=== PATIENT | female | born 1990 | race Caucasian/White ===

== ENCOUNTER 2020-10-30 21:30 | Emergency (ER) | payer OTHER, SELFPAY ==
[2020-10-30 22:02] LABS: Bilirubin Neg (Negative); Blood, Urine 25 (Negative); Clarity Clear (Clear); Glucose, Urine (Dipstick) Normal (Negative); Ketone, Urine Negative (Negative); Leukocyte 25 (Negative); Nitrite Negative (Negative); Protein, Urine (Dipstick) Negative (Neg-Trace); Specific Gravity, Urine 1.015 (1.002-1.036)
[2020-10-30 22:05] LABS: Pregnancy Test - Urine (BHCG) Negative (Negative); Pregu Control Background? CLEAR/WHITE (CLR/WHITE); Pregu Control Bar Appear? YES (CONTROL BAR); Specific Gravity 1.015 (1.002-1.036)
[2020-10-30 22:08] LABS: Bacteria/HPF 1+ HPF (None Seen); RBC/HPF 0-3 HPF (0-3); Squamous Epithelial 0-3 HPF (0-3)
[2020-10-30 23:24] LABS: #Eosinphils 0.3 10x3/uL (0.0-0.5); #Monocytes 0.5 10x3/uL (0.0-1.1); #Neutrophils 5.6 10x3/uL (1.5-8.4); %Basophils 0.5 % (0.0-2.0); %Lymphocytes 25.2 % (18.0-47.0); %Monocytes 5.5 % (0.0-10.0); %Neutrophils 65.3 % (40.0-75.0); Hemoglobin 8.8 g/dL (12.0-15.5); Mean Corpuscular Hemoglobin 20.6 pg (27.0-33.0); Mean Corpuscular Volume 70.8 fl (81.6-98.3); Mean Platelet Volume 10.9 fl (7.4-10.4); Platelet Count 431 10x3/uL (150-450); RBC Distribution Width 17.9 % (11.5-14.5); Red Blood Cell (RBC) Count 4.28 10x6/uL (3.90-5.03); White Blood Cell (WBC) Count 8.5 10x3/uL (3.5-10.5)
[2020-10-30 23:32] LABS: ALT (SGPT) 56 U/L (8-55); AST (SGOT) 66 U/L (5-34); Albumin 4.1 g/dL (3.5-5.0); Alkaline Phosphatase 109 U/L (40-110); Anion Gap 16 mmol/L (10-20); BUN (Urea Nitrogen) 9 mg/dL (7.0-18.7); Bilirubin, Total 0.3 mg/dL (0.2-1.2); Calc. Creatinine Clearance 0 mL/min (70-130); Calcium 9.3 mg/dL (7.8-10.44); Carbon Dioxide 21 mmol/L (22-29); Chloride 103 mmol/L (98-107); Globulin 3.8 g/dL (2.4-3.5); Glucose 208 mg/dL (70-105); Protein, Total 7.9 g/dL (6.0-8.3); Sodium 136 mmol/L (136-145)
== END 2020-10-31 01:48 | disposition left against medical advice (07) ==
LOC: CSHERS 21:30
DX: D50.9 Iron deficiency anemia, unspecified (principal); R07.89 Other chest pain; R73.9 Hyperglycemia, unspecified
CPT/HCPCS: 80053; 81003; 81015; 81025; 84484; 85025; 93005

== ENCOUNTER 2021-07-07 12:56 | Emergency (ER) | payer SELFPAY ==
[2021-07-08 17:38] LABS: SARS-CoV-2 PCR by NAA Not Detected (NotDetected)
== END 2021-07-07 15:08 | disposition home or self-care (01) ==
LOC: CSHERS 12:56
DX: R50.9 Fever, unspecified (principal); Z20.822 Contact with and (suspected) exposure to COVID-19; D64.9 Anemia, unspecified
CPT/HCPCS: 87804; 99283; U0003; U0005

== ENCOUNTER 2021-10-18 21:25 | Emergency (ER) | payer MEDICAID ==
[2021-10-18 22:26] LABS: #Basophils 0.1 10x3/uL (0.0-0.2); #Eosinphils 0.3 10x3/uL (0.0-0.5); #Monocytes 0.5 10x3/uL (0.0-1.1); #Neutrophils 6.8 10x3/uL (1.5-8.4); %Basophils 0.5 % (0.0-2.0); %Eosinophils 3.4 % (0.0-6.0); %Lymphocytes 21.4 % (18.0-47.0); %Monocytes 5.2 % (0.0-10.0); %Neutrophils 68.9 % (40.0-75.0); Hemoglobin 8.3 g/dL (12.0-15.5); Mean Corpuscular HGB CONC 27.7 g/dL (32.0-36.0); Mean Corpuscular Hemoglobin 18.8 pg (27.0-33.0); Mean Platelet Volume 10.9 fl (7.4-10.4); Platelet Count 422 10x3/uL (150-450); RBC Distribution Width 19.2 % (11.5-14.5); Red Blood Cell (RBC) Count 4.41 10x6/uL (3.90-5.03); White Blood Cell (WBC) Count 9.9 10x3/uL (3.5-10.5)
[2021-10-18 22:48] LABS: ALT (SGPT) 78 U/L (8-55); AST (SGOT) 93 U/L (5-34); Alkaline Phosphatase 102 U/L (40-110); Anion Gap 15 mmol/L (10-20); BUN (Urea Nitrogen) 8 mg/dL (7.0-18.7); Bilirubin, Total 0.5 mg/dL (0.2-1.2); Calc. Creatinine Clearance 0 mL/min (70-130); Calcium 9.6 mg/dL (7.8-10.44); Carbon Dioxide 21 mmol/L (22-29); Chloride 103 mmol/L (98-107); Globulin 3.8 g/dL (2.4-3.5); Glucose 225 mg/dL (70-105); Potassium 3.8 mmol/L (3.5-5.1); Protein, Total 7.8 g/dL (6.0-8.3); Sodium 135 mmol/L (136-145)
[2021-10-18 23:17] LABS: Hypochromia MODERATE=16-30 cells (100X) (0-5/hpf); Platelet Morphology Comment Appears Adequate; Tear Drops SLIGHT = 2-5 cells (100X) (0-1/hpf)
== END 2021-10-19 01:02 | disposition home or self-care (01) ==
LOC: CSHERS 21:25
DX: R06.02 Shortness of breath (principal); G25.81 Restless legs syndrome
CPT/HCPCS: 36416; 71045; 80053; 83880; 84484; 85025; 86850; 86900; 86901; 93005

== ENCOUNTER 2022-05-19 07:52 | Emergency (ER) | payer MEDICAID | END 2022-05-19 09:33 | disposition home or self-care (01) | LOC: CSHERS 07:52 | DX: M25.511 Pain in right shoulder (principal); E11.9 Type 2 diabetes mellitus without complications | CPT/HCPCS: 99283 ==

== ENCOUNTER 2023-06-10 17:18 | Emergency (ER) | payer OTHER, SELFPAY ==
[2023-06-10 18:13] LABS: SARS-CoV-2 NAA Rapid Test Not Detected (NotDetected)
== END 2023-06-10 19:19 | disposition home or self-care (01) ==
LOC: CSHERS 17:18
DX: J20.9 Acute bronchitis, unspecified (principal); E11.9 Type 2 diabetes mellitus without complications; Z20.822 Contact with and (suspected) exposure to COVID-19
CPT/HCPCS: 99283

== ENCOUNTER 2023-08-08 13:49 | Emergency (ER) | payer SELFPAY ==
[2023-08-08 15:26] LABS: SARS-CoV-2 NAA Rapid Test Not Detected (NotDetected)
== END 2023-08-08 15:40 | disposition home or self-care (01) ==
LOC: CSHERS 13:49
DX: J06.9 Acute upper respiratory infection, unspecified (principal); E11.9 Type 2 diabetes mellitus without complications
CPT/HCPCS: 99283

== ENCOUNTER 2024-03-28 10:40 | Emergency (ER) | payer SELFPAY ==
[2024-03-28] MEDS ORDERED: Aspirin Chewable 81 MG TAB ONE (12:09)
[2024-03-28] MEDS ORDERED: Ketorolac Tromethamine 30 MG (1 mL) VIAL ONE (12:09)
[2024-03-28 12:36] LABS: #Basophils 0.02 10x3/uL (0.0-0.2); #Eosinphils 0.15 10x3/uL (0.0-0.5); #Monocytes 0.28 10x3/uL (0.0-1.1); #Neutrophils 3.55 10x3/uL (1.5-8.4); %Basophils 0.4 % (0.0-2.0); %Eosinophils 2.7 % (0.0-6.0); %Lymphocytes 28.2 % (18.0-47.0); %Neutrophils 63.3 % (40.0-75.0); Hematocrit 22.8 % (34.9-44.5); Hemoglobin 5.4 g/dL (12.0-15.5); Mean Corpuscular HGB CONC 23.7 g/dL (32.0-36.0); Mean Corpuscular Hemoglobin 14.1 pg (27.0-33.0); Mean Corpuscular Volume 59.5 fL (81.6-98.3); Platelet Count 403 10x3/uL (150-450); RBC Distribution Width 20.9 % (11.5-14.5); Red Blood Cell (RBC) Count 3.83 10x6/uL (3.90-5.03); White Blood Cell (WBC) Count 5.6 10x3/uL (3.5-10.5)
[2024-03-28 12:38] LABS: BHCG - Serum Negative (NEGATIVE); Pregs Control Background? CLEAR/WHITE (CLR/WHITE); Pregs Control Bar Appear? YES (CONTROL BAR)
[2024-03-28 12:44] LABS: ALT (SGPT) 11 U/L (8-55); AST (SGOT) 13 U/L (5-34); Albumin 3.7 g/dL (3.5-5.0); Alkaline Phosphatase 58 U/L (40-110); Anion Gap 12 mmol/L (10-20); BUN (Urea Nitrogen) 9 mg/dL (7.0-18.7); Bilirubin, Total 0.5 mg/dL (0.2-1.2); Calc. Creatinine Clearance 0 mL/min (70-130); Calcium 9.5 mg/dL (7.8-10.44); Carbon Dioxide 24 mmol/L (22-29); Chloride 106 mmol/L (98-107); Estimated GFR 116; Globulin 3.8 g/dL (2.4-3.5); Glucose 130 mg/dL (70-105); Lipase 23 U/L (8-78); Potassium 3.3 mmol/L (3.5-5.1); Protein, Total 7.5 g/dL (6.0-8.3); Sodium 139 mmol/L (136-145)
[2024-03-28 12:50] LABS: Troponin I Less than 0.010 ng/mL (< 0.028)
[2024-03-28 13:26] LABS: Bilirubin Neg (Negative); Blood, Urine Negative (Negative); Clarity Clear (Clear); Glucose, Urine (Dipstick) Normal (Negative); Ketone, Urine Negative (Negative); Leukocyte Negative (Negative); Nitrite Negative (Negative); Protein, Urine (Dipstick) Negative (Neg-Trace); Specific Gravity, Urine 1.005 (1.005-1.030); Urobilinogen Normal mg/dL (Less than 2); pH, Urine 6.5 (5.0-9.0)
[2024-03-28 13:37] LABS: Anisocytosis MODERATE=16-30 cells (100X) (0-5/hpf); Hypochromia MARKED = >30 cells (100X) (0-5/hpf); Microcytosis MODERATE=15-30 cells (100X) (0-5/hpf); Ovalocytes MODERATE= 6-15 cells (100X) (0-1/hpf); Polychromasia SLIGHT = 2-3 cells (100X) (0-2/hpf); Target Cells SLIGHT = 2-5 cells (100X) (0-1/hpf); Tear Drops MODERATE= 6-15 cells (100X) (0-1/hpf)
[2024-03-28 13:38] LABS: Large Platelets SLIGHT (None Seen); Platelet Adequacy Comment Appears Adequate
[2024-03-28 14:10] LABS: Bacteria/HPF Rare-Few HPF (None Seen); CAUTI Indications for Culture Fever or rigors; RBC/HPF 0-3 HPF (0-3); Squamous Epithelial 0-3 HPF (0-3); Urine Culture Reflex No No; WBC/HPF 0-3 HPF (0-3)
[2024-03-28 16:22] LABS: Troponin I Less than 0.010 ng/mL (< 0.028)
[2024-03-28 18:20] LABS: Hematocrit 27.9 % (34.9-44.5); Hemoglobin 7.3 g/dL (12.0-15.5)
== END 2024-03-28 18:51 | disposition home or self-care (01) ==
LOC: CSHERS 10:40
DX: R07.9 Chest pain, unspecified (principal); D64.9 Anemia, unspecified
CPT/HCPCS: 36415; 36430; 71045; 80053; 81001; 83690; 84484; 84703; 85025; 85379; 86850; 86900; 86901; 93005; 96374; J1885; P9016

== ENCOUNTER 2024-05-01 05:08 | Emergency (ER) | payer SELFPAY ==
[2024-05-01] MEDS ORDERED: Famotidine 20 MG TAB ONE (05:25)
[2024-05-01 05:57] LABS: #Basophils 0.05 10x3/uL (0.0-0.2); #Eosinophils 0.79 10x3/uL (0.0-0.5); #Monocytes 0.55 10x3/uL (0.0-1.1); #Neutrophils 4.65 10x3/uL (1.5-8.4); %Basophils 0.7 % (0.0-2.0); %Eosinophils 10.5 % (0.0-6.0); %Lymphocytes 19.4 % (18.0-47.0); %Monocytes 7.3 % (0.0-10.0); %Neutrophils 61.8 % (40.0-75.0); Hematocrit 27.6 % (34.9-44.5); Hemoglobin 7.8 g/dL (12.0-15.5); Mean Corpuscular HGB CONC 28.3 g/dL (32.0-36.0); Mean Corpuscular Hemoglobin 19.2 pg (27.0-33.0); Mean Corpuscular Volume 67.8 fL (81.6-98.3); Platelet Count 440 10x3/uL (150-450); Red Blood Cell (RBC) Count 4.07 10x6/uL (3.90-5.03); White Blood Cell (WBC) Count 7.4 10x3/uL (3.5-10.5)
[2024-05-01 05:59] LABS: BHCG - Serum Negative (NEGATIVE); Pregs Control Background? CLEAR/WHITE (CLR/WHITE); Pregs Control Bar Appear? YES (CONTROL BAR)
[2024-05-01 06:13] LABS: ALT (SGPT) 13 U/L (8-55); AST (SGOT) 17 U/L (5-34); Albumin 3.8 g/dL (3.5-5.0); Alkaline Phosphatase 59 U/L (40-110); Anion Gap 15 mmol/L (10-20); BUN (Urea Nitrogen) 9 mg/dL (7.0-18.7); Bilirubin, Total 0.4 mg/dL (0.2-1.2); Calc. Creatinine Clearance 0 mL/min (70-130); Calcium 9.3 mg/dL (7.8-10.44); Carbon Dioxide 21 mmol/L (22-29); Chloride 107 mmol/L (98-107); Estimated GFR 116; Globulin 3.8 g/dL (2.4-3.5); Glucose 102 mg/dL (70-105); Potassium 3.6 mmol/L (3.5-5.1); Protein, Total 7.6 g/dL (6.0-8.3); Sodium 139 mmol/L (136-145)
[2024-05-01 06:18] LABS: Troponin I Less than 0.010 ng/mL (< 0.028)
== END 2024-05-01 06:27 | disposition home or self-care (01) ==
LOC: CSHERS 05:08
DX: K29.20 Alcoholic gastritis without bleeding (principal); D64.9 Anemia, unspecified; R11.2 Nausea with vomiting, unspecified; E11.9 Type 2 diabetes mellitus without complications; Z79.84 Long term (current) use of oral hypoglycemic drugs; Z55.0 Illiteracy and low-level literacy
CPT/HCPCS: 71045; 80053; 84484; 84703; 85025; 93005

== ENCOUNTER 2024-06-02 10:42 | Emergency (ER) | payer OTHER, SELFPAY ==
[2024-06-02 11:42] LABS: #Basophils 0.01 10x3/uL (0.0-0.2); #Eosinophils 0.34 10x3/uL (0.0-0.5); #Monocytes 0.45 10x3/uL (0.0-1.1); #Neutrophils 3.06 10x3/uL (1.5-8.4); %Basophils 0.2 % (0.0-2.0); %Eosinophils 6.1 % (0.0-6.0); %Lymphocytes 30.3 % (18.0-47.0); %Monocytes 8.1 % (0.0-10.0); %Neutrophils 54.9 % (40.0-75.0); Critical Call w/ Read Back NUR.MB22@1142/NS1.; Hemoglobin 5.6 g/dL (12.0-15.5); Mean Corpuscular HGB CONC 26.7 g/dL (32.0-36.0); Mean Corpuscular Volume 67.5 fL (81.6-98.3); Mean Platelet Volume 9.8 fL (7.4-10.4); Platelet Count 400 10x3/uL (150-450); RBC Distribution Width 19.6 % (11.5-14.5); Red Blood Cell (RBC) Count 3.11 10x6/uL (3.90-5.03); White Blood Cell (WBC) Count 5.6 10x3/uL (3.5-10.5)
[2024-06-02 11:51] LABS: ALT (SGPT) 13 U/L (8-55); AST (SGOT) 14 U/L (5-34); Albumin 3.6 g/dL (3.5-5.0); Alkaline Phosphatase 56 U/L (40-110); Anion Gap 10 mmol/L (10-20); BUN (Urea Nitrogen) 10 mg/dL (7.0-18.7); Bilirubin, Total 0.3 mg/dL (0.2-1.2); Calc. Creatinine Clearance 0 mL/min (70-130); Calcium 9.2 mg/dL (7.8-10.44); Carbon Dioxide 24 mmol/L (22-29); Chloride 108 mmol/L (98-107); Estimated GFR 118; Globulin 3.5 g/dL (2.4-3.5); Glucose 110 mg/dL (70-105); Potassium 3.9 mmol/L (3.5-5.1); Protein, Total 7.1 g/dL (6.0-8.3); Sodium 138 mmol/L (136-145)
[2024-06-02 11:57] LABS: BHCG - Serum Negative (NEGATIVE); Pregs Control Background? CLEAR/WHITE (CLR/WHITE); Pregs Control Bar Appear? YES (CONTROL BAR)
[2024-06-02 12:33] LABS: Bilirubin Neg (Negative); Blood, Urine Negative (Negative); Clarity Clear (Clear); Glucose, Urine (Dipstick) Normal (Negative); Ketone, Urine Negative (Negative); Leukocyte Negative (Negative); Nitrite Negative (Negative); Protein, Urine (Dipstick) Negative (Neg-Trace); Urobilinogen Normal mg/dL (Less than 2)
[2024-06-02 12:47] LABS: Bacteria/HPF None Seen HPF (None Seen); CAUTI Indications for Culture Acute Hematuria; RBC/HPF None Seen HPF (0-3); Squamous Epithelial 0-3 HPF (0-3); WBC/HPF None Seen HPF (0-3)
[2024-06-02 12:48] LABS: Urine Culture Reflex No No
[2024-06-02] MEDS ORDERED: Ondansetron PF 4 MG/2 ML Vial ONE (15:02)
== END 2024-06-02 17:25 | disposition home or self-care (01) ==
LOC: CSHERS 10:42
DX: D64.9 Anemia, unspecified (principal); E11.9 Type 2 diabetes mellitus without complications
CPT/HCPCS: 36415; 36430; 71045; 80053; 81001; 83880; 84703; 85025; 86850; 86900; 86901; 96374; J2405; P9016

== ENCOUNTER 2024-07-14 09:17 | Emergency (ER) | payer SELFPAY | END 2024-07-14 11:45 | disposition home or self-care (01) | LOC: CSHERS 09:17 | DX: J06.9 Acute upper respiratory infection, unspecified (principal); E11.9 Type 2 diabetes mellitus without complications; Z79.84 Long term (current) use of oral hypoglycemic drugs | CPT/HCPCS: 87428; 93005; 99283 ==

== ENCOUNTER 2025-02-28 09:51 | Emergency (ER) | payer OTHER | END 2025-02-28 11:30 | disposition home or self-care (01) | LOC: CSHERS 09:51 | DX: R05.9 Cough, unspecified (principal); R11.0 Nausea; R50.9 Fever, unspecified | CPT/HCPCS: 99283 ==

== ENCOUNTER 2025-03-02 08:16 | Emergency (ER) | payer OTHER | END 2025-03-02 10:00 | disposition home or self-care (01) | LOC: CSHERS 08:16 | DX: J06.9 Acute upper respiratory infection, unspecified (principal); E11.9 Type 2 diabetes mellitus without complications | CPT/HCPCS: 99283 ==

== ENCOUNTER 2025-03-08 13:49 | Emergency (ER) | payer OTHER ==
[2025-03-08 16:07] LABS: #Basophils Less than 0.03 10x3/uL (0.0-0.2); #Eosinophils 0.22 10x3/uL (0.0-0.5); #Monocytes 0.27 10x3/uL (0.0-1.1); #Neutrophils 5.81 10x3/uL (1.5-8.4); %Basophils 0.1 % (0.0-2.0); %Eosinophils 2.7 % (0.0-6.0); %Lymphocytes 20.5 % (18.0-47.0); %Monocytes 3.4 % (0.0-10.0); %Neutrophils 72.4 % (40.0-75.0); Hematocrit 22.5 % (34.9-44.5); Hemoglobin 6.7 g/dL (12.0-15.5); Mean Corpuscular Hemoglobin 23.6 pg (27.0-33.0); Mean Corpuscular Volume 79.2 fL (81.6-98.3); Platelet Count 400 10x3/uL (150-450); Red Blood Cell (RBC) Count 2.84 10x6/uL (3.90-5.03); White Blood Cell (WBC) Count 8.03 10x3/uL (3.5-10.5)
[2025-03-08 16:35] LABS: ALT (SGPT) 11 U/L (Less than 34); AST (SGOT) 22 U/L (11-34); Albumin 3.9 g/dL (3.1-4.5); Alkaline Phosphatase 60 U/L (40-110); Anion Gap 13 mmol/L (10-20); BUN (Urea Nitrogen) 9 mg/dL (7.0-18.7); Bilirubin, Total 0.2 mg/dL (0.3-1.2); Calc. Creatinine Clearance 0 mL/min (70-130); Calcium 9.0 mg/dL (7.8-10.44); Carbon Dioxide 24 mmol/L (22-29); Chloride 107 mmol/L (98-107); Globulin 3.6 g/dL (2.4-3.5); Glucose 128 mg/dL (70-105); Potassium 3.4 mmol/L (3.5-5.1); Sodium 141 mmol/L (136-145)
== END 2025-03-08 18:40 | disposition home or self-care (01) ==
LOC: CSHERS 13:49
DX: D64.9 Anemia, unspecified (principal); E11.9 Type 2 diabetes mellitus without complications; Z79.84 Long term (current) use of oral hypoglycemic drugs
CPT/HCPCS: 36430; 80053; 85025; 86850; 86900; 86901; 99284; P9016

== ENCOUNTER 2025-04-25 13:30 | Outpatient (CLI) | payer OTHER | END 2025-04-25 13:31 | disposition home or self-care (01) | LOC: CSHLAB 13:30 | PROVIDERS: ATTEND Obstetrics & Gynecology | DX: Z01.818 Encounter for other preprocedural examination (principal); N85.02 Endometrial intraepithelial neoplasia [EIN] | CPT/HCPCS: 93005; 93010 ==

== ENCOUNTER 2025-07-11 18:47 | Emergency (ER) | payer OTHER ==
[2025-07-11] MEDS ORDERED: Acetaminophen 500 MG TAB ONE (21:52)
== END 2025-07-11 22:27 | disposition home or self-care (01) ==
LOC: CSHERS 18:47
DX: S06.0X0A Concussion without loss of consciousness, initial encounter (principal); E11.9 Type 2 diabetes mellitus without complications; W22.09XA Striking against other stationary object, initial encounter; Z79.84 Long term (current) use of oral hypoglycemic drugs
CPT/HCPCS: 70450